=== PATIENT | female | born 1980 ===

== ENCOUNTER 2017-07-07 10:51 | Inpatient (IN) | payer OTHER ==
[2017-07-07 20:47] VITALS: BMI 29.2
[2017-07-07] MEDS ORDERED: Oxytocin 30 units/LR 500ML 500 ML IV SCH (21:00)
[2017-07-07] MEDS ORDERED: Lactated Ringer's 1,000 ML IV SCH ×2 (21:00)
[2017-07-07 21:43] LABS: BASO % 0.5 % (0.0-2.0); EOS # 0.2 K/uL (0.0-0.7); EOS % 2.2 % (0.0-4.0); HEMATOCRIT 38.1 % (34.0-47.0); LYMPH # 1.4 K/uL (1.0-4.3); LYMPH % 17.9 % (20.0-40.0); MEAN CELL VOLUME 89.6 fl (81.0-99.0); MEAN CORPUSCULAR HGB CONC 33.5 g/dL (33.0-37.0); MEAN PLATELET VOLUME 8.6 fl (7.2-11.7); MONO # 0.8 K/uL (0.0-0.8); MONO % 10.4 % (0.0-10.0); NEUT # 5.2 K/uL (1.8-7.0); NRBC % 0.1 % (0.0-0.0); RED CELL DISTRIBUTION WIDTH 13.9 % (11.5-14.5); WHITE BLOOD COUNT 7.6 K/uL (4.8-10.8)
--- NOTE | 2017-07-08 03:03 | OBADHP ---
Datetime: 07/07/2017 22:00 Presentation-Admit: Vertex IP Chief Complaint: Signs/Symptoms Gestational HTN FHR Category Provider Fetus A: Category I Datetime: 07/07/2017 20:27 Admit Comment, IP Provider: 37 yr at 40+.0 wks GA, AMA, hypothyroidism, hx IVF, asthma, hx e levated LFT's presents to labor and delivery for scheduled induction of labor for post dates. Denies vaginal bleeding, LOF or contractions. + FM. Denies any complications with this . PNC: Dr Meza chart rev'd OBGynHx: 1 spontaneous ; AMA, hx IVF, hx elevated LFT's, 3rd tri labs wnl, Rubella Immune, Tdap given, Hep B neg, GBS neg PMHx: hypothyroidism, asthma SurgHx: none SocHx: denies smoking, Etoh or drugs FMHx: noncontributory Meds: Levothyroxine 100mcg, PNV PE: general: in no acute distress, pleasant, well nourished HEENT: normocephalic, atraumatic, PERRLA Lungs: clear to auscultation, good air entry Cardiovascular: normal S1 S2, no m/r/g Abd: normal bowel sounds, nontender Ext: full ROM monitoring: FHR 145 with moderate variability, accelerations 15x15, no decels A: 37 yr at 40+wks GA, hx IVF, post dates, AMA, hypothyroidism here for scheduled IOL P: -Admit to labor and delivery -IV insertion, IVF, CBC, Type and screen -Continuous monitoring, monitor labor progress -Cervidil 10mg vag -regular diet Giselle Shepard M.D. PGY2 OB Hospitalist note: This pt was seen and examined by me. Agree with above note. MAHNDO Extremities - PN: Normal Back - PN: Normal Lungs - PN: Normal Heart - PN: Normal Thyroid - PN: Normal Neurologic - PN: Normal HEENT - PN: Normal General - PN: Normal IP Fetus A Comments: laura calvillo FHR - Baseline A Provider: 145 Membranes, Provider: Intact Contraction Comments Provider: 0 Comments, ACOG Physical Exam: ROS: General: no weakness; no fatigue HEENT: no CHAVEZ; no visual dist CV: no palpitations; no no CP GI: no N/V no diarhea : no F/U/D MS: No joint pain Pool Provider: Negative IP Hx Assessment: The History has been Reviewed and is Current Vital Signs Provider: Reviewed; Within Normal Limits NICHD Variability Prov Fetus A: Moderate 6-25bpm NICHD Accel Fetus A IP Provider: [id number] NICHD Decel Fetus A IP Provider: None Dilatation, Provider: 0 Effacement, Provider: 0 IP Adm Impression: Term, intrauterine ; No Active Labor; Intact Membranes IP Admit Plan: Admit to unit; Initiate labor induction protocol
--- NOTE | 2017-07-08 03:06 | OBPN ---
Datetime: 07/07/2017 22:00 IP Progress Impression: Reassuring heart rate IP Informed Consent Obtain: Vaginal Delivery; Risks, Benefits and Alternatives Discussed IP Progress Plan: Induction; Cervical Ripening Presentation-Admit: Vertex IP Progress Note Comment: Cervidil placed intravaginally FHR Category Provider Fetus A: Category I Datetime: 07/07/2017 20:27 Pool Provider: Negative Membranes, Provider: Intact Contraction Comments Provider: 0 FHR - Baseline A Provider: 145 IP Fetus A Comments: sono cepha Vital Signs Provider: Reviewed; Within Normal Limits NICHD Accel Fetus A IP Provider: 15X15 NICHD Variability Prov Fetus A: Moderate 6-25bpm Dilatation, Provider: 0 Effacement, Provider: 0 NICHD Decel Fetus A IP Provider: None
[2017-07-08] MEDS: Lactated Ringer's 500 ML IV SCH ×3 (05:30→09:02)
--- NOTE | 2017-07-08 08:14 | OBPN ---
Datetime: 07/08/2017 07:55 IP Progress Impression: Normal progression of labor; Reassuring heart rate; Reactive non-stres s test IP Informed Consent Obtain: Vaginal Delivery; Risks, Benefits and Alternatives Discussed IP Progress Plan: Augmentation; Anticipate Vaginal Delivery Pool Provider: Negative Membranes, Provider: Intact Contraction Comments Provider: irregular FHR - Baseline A Provider: 145 Presentation-Admit: Vertex IP Progress Note Comment: Notifiedd that she was checked SVE 2-3cm at 5AM. She feels fine Latent phase of labor WIll start Pitocin augmentatoin...she would like enema/clear fluids for breakfast NICHD Accel Fetus A IP Provider: 15X15 FHR Category Provider Fetus A: Category I NICHD Variability Prov Fetus A: Moderate 6-25bpm Dilatation, Provider: 3 Effacement, Provider: 75 Station, Provider: -1 NICHD Decel Fetus A IP Provider: None
[2017-07-08] MEDS ORDERED: Oxytocin 30 units/LR 500ML 30 U/500 ML BAG IV SCH (08:15)
[2017-07-08] MEDS ORDERED: Nalbuphine 20 mg/ml Inj (1 ml) IVP ONE (09:35)
--- NOTE | 2017-07-08 09:39 | OBPN ---
Datetime: 07/08/2017 09:35 IP Progress Note Comment: Notified that she is requesting pain medicatoin ... in latent phase ...aron De La Garza FHR Category Provider Fetus A: Category I
[2017-07-08] MEDS ORDERED: Fentanyl/Bupivacaine HCl 250 ML EPI ONE (11:37)
--- NOTE | 2017-07-08 11:42 | OBPN ---
Datetime: 07/08/2017 11:30 IP Progress Impression: Normal progression of labor; Reassuring heart rate; Reactive non-stres s test IP Informed Consent Obtain: Vaginal Delivery; Risks, Benefits and Alternatives Discussed IP Progress Plan: Continue present management; Augmentation; Anesthesia consult Contraction Comments Provider: 2-4m FHR - Baseline A Provider: 120 IP Progress Note Comment: Notified that she was 6-7cm and requested epidural Active phase of labor PLAN sono used to locate FH (120's) Dr Juanjose jernigan for epidural NICHD Accel Fetus A IP Provider: 15X15 FHR Category Provider Fetus A: Category I NICHD Variability Prov Fetus A: Moderate 6-25bpm Dilatation, Provider: 6-7 NICHD Decel Fetus A IP Provider: None
--- NOTE | 2017-07-08 13:03 | OBPN ---
Datetime: 07/08/2017 12:45 IP Progress Impression: Normal progression of labor; Reassuring heart rate IP Informed Consent Obtain: Vaginal Delivery; Risks, Benefits and Alternatives Discussed IP Progress Plan: Continue present management Contraction Comments Provider: 2-3m FHR - Baseline A Provider: 120 Presentation-Admit: Vertex IP Progress Note Comment: NOtified that she was 6-7cm at 11:50am. She rec' d epidrual from Dr Sow a nd fetl much better. Pitocin was shut off because she was havign CTX q2-3m A: Active phase of labor PLAN: observe labor progress NICHD Accel Fetus A IP Provider: 15X15 FHR Category Provider Fetus A: Category I NICHD Variability Prov Fetus A: Moderate 6-25bpm Dilatation, Provider: 9 Effacement, Provider: 100 Station, Provider: -1 NICHD Decel Fetus A IP Provider: None
[2017-07-08] MEDS ORDERED: Oxytocin 30 units/LR 500ML 30 U/500 ML BAG IV ONE (16:45)
[2017-07-08] MEDS ORDERED: Lidocaine 1% Inj (20ml) ONE (17:21)
--- NOTE | 2017-07-08 19:12 | OBDS ---
DELIVERY PERSONNEL Delivery Doctor: Cristobal Meza DO Armored Machine Operator: Kate/[place]/Gianluca Anesthesiologist: Perry Resident: Dr peter MATERNAL INFORMATION Delivery Anesthesia: Local; Epidural Medications in Delivery: Pitocin Estimated Blood Loss (ml): 200 Placenta Cultured: No Maternal Complications: None Provider Comments: Over intact perineum, of live infant female (compound - left arm). Infant w as crying spontaneously and bulb suctioned nasopharygeally. Father cut umbilcal cord. was gi nancy to mother for skin to skin. Cord bloods obtained. Stemcell / tissue kit collected. [place] escobarreed intact spontaneously. She remained stable EBL 200cc LABOR SUMMARY EDC: 07/06/2017 00:00 No. Babies in Womb: 1 Attempted: No Labor Anesthesia: Epidural LABOR INFORMATION Onset of Labor: 07/08/2017 11:40 Complete Dilatation: 07/08/2017 15:00 Cervical Ripening Agents: Cervidil (Annotations: cervidil placed to vagina , by dr meza , pt was exp lained) Oxytocin: Augmentation Group B Beta Strep: Negative Antibiotics # of Doses: n/a Antibiotics Time of Last Dose: n/a Steroids Given: None Reason Steroids Not Administered: Not Applicable MEMBRANES Membranes Rupture Method: Spontaneous Rupture of Membranes: 07/01/2017 10:50 Length of Rupture (hrs): 175.53 Amniotic Fluid Color: Clear Amniotic Fluid Amount: Moderate Amniotic Fluid Odor: Normal STAGES OF LABOR Stage 1 hrs: 3 Stage 1 min: 20 Stage 2 hrs: 3 Stage 2 min: 22 Stage 3 hrs: 0 Stage 3 min: 26 Total Time in Labor hrs: 7 Total Time in Labor min: 8 VAGINAL DELIVERY Episiotomy: None Laceration Extension: Second Degree Laceration Type: None Laceration Repair: Yes Laceration Repair Note: 1% Lidocaine was infiltrated (3cc). Second degree laceration was repaired w ith 2.0 Vicryl Rapide suture Initial Vag Sponge Count: Laps=10 Final Vag Sponge Count: 10 Initial Vag Sharps Count: 2 Final Vag Sharps Count: 2 Sponge Count Correct: Yes Sharps Count Correct: Yes BABY A INFORMATION Delivery Date/Time: 07/08/2017 18:22 Method of Delivery: Vaginal Born in Route : No : N/A Forceps: N/A Vacuum Extraction: N/A Shoulder Dystocia : No SHOULDER DYSTOCIA BABY A Delivery Date/Time: 07/08/2017 18:22 PRESENTATION/POSITION BABY A Presentation: Compound Cephalic Presentation: Vertex Breech Presentation: N/A PLACENTA INFORMATION BABY A Placenta Delivery Time : 07/08/2017 18:48 Placenta Method of Delivery: Spontaneous Placenta Status: Delivered SCORES BABY A Heart Rate 1 min: >100 bpm Resp Effort 1 min: Good Cry Reflex Irritability 1 min: Cough or Sneeze or Pulls Away Muscle Tone 1 min: Active Motion Color 1 min: Completely [place] Resuscitation Effort 1 min: Tactile Stimulation SCORE 1 MIN: 10 Heart Rate 5 min: >100 bpm Resp Effort 5 min: Good Cry Reflex Irritability 5 min: Cough or Sneeze or Pulls Away Muscle Tone 5 min: Active Motion Color 5 min: Body [place], Extremities Blue Resuscitation Effort 5 min: N/A SCORE 5 MIN: 9 INFANT INFORMATION BABY A Gestational Age at Delivery: 40.2 Gestational Status: Term Infant Outcome : Liveborn Infant Condition : Stable Sex: Female IDENTIFICATION/MEDS BABY A ID Band Number: [id number] ID Band Location: Left Leg; Left Arm Vitamin K Given : Not Given Erythromycin Given: Not Given WEIGHT/LENGTH BABY A Infant Birthweight (gms): 3490 Weight (lb): 7 Weight (oz): 11 CORD INFORMATION BABY A No. Cord Vessels: 3 Nuchal Cord : N/A Nuchal Cord Other: n/a True Knot: n/a Cord pH Baby Arterial: n/a Infant Cord pH Baby Venous: n/a Cord Blood Taken: Yes Banking/Donate Info: [employer]*[id number]* Infant Suction: Mouth; Nose ASSESSMENT BABY A Complications: None Physical Findings at Delivery: Within Normal Limits Infant Respirations: Appears Normal Certified Forklift Operator/ALS Called : No Care By: Carter/Kate/Gianluca Transferred To: Remains with Mother
[2017-07-08] MEDS ORDERED: Benzocaine/Menthol SPRAY TOP PRN (20:20)
[2017-07-08] MEDS ORDERED: Oxycodone/Acetaminophen 5/325 mg Tab PO PRN ×2 (20:20)
[2017-07-09] MEDS: Levothyroxine 100 MCG TAB PO SCH (06:08)
[2017-07-09 08:07] LABS: BASO % 0.3 % (0.0-2.0); EOS # 0.2 K/uL (0.0-0.7); HEMATOCRIT 37.4 % (34.0-47.0); LYMPH # 1.4 K/uL (1.0-4.3); LYMPH % 9.3 % (20.0-40.0); MEAN CELL VOLUME 89.7 fl (81.0-99.0); MEAN CORPUSCULAR HEMOGLOBIN 29.5 pg (27.0-31.0); MEAN CORPUSCULAR HGB CONC 32.9 g/dL (33.0-37.0); MEAN PLATELET VOLUME 8.2 fl (7.2-11.7); MONO # 1.1 K/uL (0.0-0.8); MONO % 7.6 % (0.0-10.0); NEUT # 12.2 K/uL (1.8-7.0); NEUT % 81.8 % (50.0-75.0); PLATELET COUNT 176 K/uL (130-400); RED CELL DISTRIBUTION WIDTH 13.8 % (11.5-14.5); WHITE BLOOD COUNT 14.9 K/uL (4.8-10.8)
[2017-07-09 11:32] LABS: BASOPHIL 1 % (0-2); GIANT PLATELETS PRESENT; LARGE PLATELETS PRESENT; MYELOCYTE 1 % (0-0); NEUTROPHIL 82 % (42-75); PLATELET CLUMPS PRESENT; TOTAL CELLS COUNTED 100
[2017-07-10] MEDS: Levothyroxine 100 MCG TAB PO SCH (06:29)
--- NOTE | 2017-07-10 08:57 | OBDCSUM ---
Datetime: 07/10/2017 08:55 Follow up at, Provider: Calvin Disch Instr Activity: Normal activity; May Shower Disch Instr Diet: Regular Discharge Instructions, Provider: Routine instructions given Discharge Diagnosis, Provider: Term Delivered Discharge Time: 07/10/2017 08:55 Follow up in weeks, Provider: 6 weeks Contraception discussed, Prov: No Disch Activity Restrictions: No exercising; No lifting; No sexual activity; Nothing in vagina - Inte rcourse, tampons, douche
--- NOTE | 2017-07-10 08:57 | OBPPN ---
Datetime: 07/10/2017 08:51 PP Pain Prov: Within normal limits PP Abdomen/Uterus Prov: Normal PP Lochia Prov: Normal PP Progress Prov: Normal PP Impression Prov: Normal progression PP Plan Prov: Discharge PP Progress Note Prov: PPD 2 s/p , doing well, breast and bottle feeding Rx motrin given Discharge home today Vital Signs Provider PP: Reviewed Datetime: 07/09/2017 22:00 PP Nausea Prov: Denies PP Flatus Prov: Yes PP BM Prov: Yes PP Breasts Prov: Normal PP Heart Prov: Normal PP Lungs Prov: Normal PP Vulva/Perineum Prov: Normal PP CVA Tenderness Prov: Normal PP Extremities Prov: Normal
[2017-07-10 18:08] VITALS: BP 118/77; PULSE 82; RESP 20; TEMP 98.4; O2SAT 98
== END 2017-07-10 13:15 | disposition home or self-care (01) | DRG 775 ==
LOC: H.L&D 20:52 → H.OB/GYN 07-08 20:43
PROVIDERS: ADMIT Obstetrics & Gynecology; ATTEND Obstetrics & Gynecology
PROC: 4A1HXCZ Monitoring of Products of Conception, Cardiac Rate, External Approach (ICD-10-PCS; 2017-07-07)
PROC: 0KQM0ZZ Repair Perineum Muscle, Open Approach (ICD-10-PCS; principal; 2017-07-08)
PROC: 10E0XZZ Delivery of Products of Conception, External Approach (ICD-10-PCS; 2017-07-08)
DX: O48.0 Post-term pregnancy (principal); E03.9 Hypothyroidism, unspecified; Z37.0 Single live birth; O99.52 Diseases of the respiratory system complicating childbirth; J45.909 Unspecified asthma, uncomplicated; O13.4 Gestational [pregnancy-induced] hypertension without significant proteinuria, complicating childbirth; O99.284 Endocrine, nutritional and metabolic diseases complicating childbirth; O70.1 Second degree perineal laceration during delivery; Z3A.40 40 weeks gestation of pregnancy